=== PATIENT | male | born 1930 | race Caucasian/White ===

== ENCOUNTER 2021-02-25 17:09 | Day surgery (SDC) | payer MEDICARE ==
[~2021-02-25] VITALS: Ht 185.4 cm; Wt 81.6 kg
[2021-02-25 20:12] LABS: BASOPHIL 0.7 % (0-2); EOSINOPHIL 4.5 % (0-7); HCT 35.4 % (42.0-52.0); HGB 11.6 g/dl (13.2-18.0); LYMPHOCYTE 19.5 % (15-48); MCHC 32.8 g/dL (32.0-36.0); MCV 97.8 fL (78.0-100.0); MONOCYTE 9.2 % (0-12); NRBC 0; PLT 145 K/uL (150-400); RBC 3.62 M/uL (4.70-6.00); RDW 12.6 % (11.5-14.0); WBC 7.1 K/uL (4.0-10.5)
[2021-02-25 20:33] LABS: ALBUMIN 3.7 g/dL (3.4-5.0); BILIRUBIN - TOTAL 0.5 mg/dL (0.2-1.0); BUN/CREAT RATIO (CALC) 18.3 RATIO; CREATININE 1.26 mg/dL (0.67-1.17); GLOBULIN (CALCULATION) 3.5 g/dL; POTASSIUM 4.4 mmol/L (3.5-5.1); TOTAL PROTEIN 7.2 g/dL (6.4-8.2)
[2021-02-26 05:21] LABS: HGB 11.8 g/dl (13.2-18.0); MCH 31.4 pg (25.0-31.0); MCHC 32.8 g/dL (32.0-36.0); MCV 95.7 fL (78.0-100.0); MPV 9.1 fL (6.0-9.5); RBC 3.76 M/uL (4.70-6.00); RDW 12.7 % (11.5-14.0); WBC 7.6 K/uL (4.0-10.5)
[2021-02-26 05:43] LABS: BUN/CREAT RATIO (CALC) 17.6 RATIO; CREATININE 1.19 mg/dL (0.67-1.17); POTASSIUM 4.2 mmol/L (3.5-5.1)
[2021-02-26] MEDS ORDERED: OXYBUTYNIN CHLO10 MG PO (10:52)
[2021-02-26] MEDS ORDERED: TERAZOSIN 2 MG C2 MG PO (10:52)
[2021-02-26] MEDS ORDERED: TRAMADOL HCL50 MG PO ×2 (10:53→14:46)
[2021-02-26] MEDS ORDERED: EUTHYROX50 MCG PO (10:53)
[2021-02-26 15:34] LABS: BILIRUBIN NEGATIVE (NEGATIVE); BLOOD 3+ Ery/uL (NEGATIVE); CLARITY HAZY (CLEAR); COLOR YELLOW (YELLOW); GLUCOSE (U) NORMAL (NORMAL); LEUKOCYTES 3+ Leu/uL (NEGATIVE); NITRITE POSITIVE (NEGATIVE); PROTEIN NEGATIVE (NEGATIVE); UROBILINOGEN 0.2 mg/dL (0.2-1.0); pH 7.5 (5.0-9.0)
[2021-02-26 15:39] LABS: BACTERIA TRACE
[2021-02-26 15:40] LABS: AMORPHOUS URATES CRYSTALS TRACE; MUCOUS TRACE; SQUAMOUS EPITHELIAL CELLS RARE
== END 2021-02-26 | disposition home or self-care (01) ==
LOC: FER 17:09 → FAS 02-26 10:39
PROVIDERS: Emergency Medicine; Surgery
DX: K41.30 Unilateral femoral hernia, with obstruction, without gangrene, not specified as recurrent (principal); D17.5 Benign lipomatous neoplasm of intra-abdominal organs; I10 Essential (primary) hypertension; Z96.643 Presence of artificial hip joint, bilateral; Z20.822 Contact with and (suspected) exposure to COVID-19; J98.11 Atelectasis
CPT/HCPCS: 36415; 80048; 80053; 81001; 85025; 87076; 87088; 87186; J0690; J1100; J2250; J2270; J2405; J2704; J3010; J7030; J7120; U0002